=== PATIENT | female | born 1990 | race African-American/Black ===

== ENCOUNTER 2018-01-30 09:33 | Day surgery (SDC) | payer OTHER ==
[2018-01-30] MEDS: NS 1,000 ML IV (06:00)
[~2018-01-30 09:33] MED LIST: PROPOFOL 200 MG/20 ML VIAL As Ordered
[2018-01-30] MEDS ORDERED: PROPOFOL 200 MG/20 ML VIAL As Ordered (10:35)
== END 2018-01-30 11:34 | disposition home or self-care (01) ==
LOC: M OPP 09:33
DX: K92.1 Melena (principal); K59.00 Constipation, unspecified; D12.2 Benign neoplasm of ascending colon; D12.5 Benign neoplasm of sigmoid colon; K64.8 Other hemorrhoids; R10.13 Epigastric pain; K29.70 Gastritis, unspecified, without bleeding; K21.9 Gastro-esophageal reflux disease without esophagitis; R12 Heartburn; Z79.899 Other long term (current) drug therapy
CPT/HCPCS: 45380

== ENCOUNTER 2019-08-20 09:54 | Emergency (ER) | payer OTHER ==
[~2019-08-20] VITALS: Ht 154.9 cm; Wt 63.6 kg
[~2019-08-20 09:54] MED LIST changes: +DOXY100T; -PROPOFOL 200 MG/20 ML VIAL As Ordered
[2019-08-20 10:48] LABS: BASO % 0.3 % (0.0-1.0); EOS % 0.3 % (0.0-3.0); HEMATOCRIT 37.6 % (36.0-47.0); HEMOGLOBIN 11.6 g/dl (12.0-15.5); LYMPH # 2.2 10^3/uL (1.5-5.0); LYMPH % 30.3 % (24.0-44.0); MEAN CORPUSCULAR HEMOGLOBIN 23.7 pg (27.0-33.0); MEAN CORPUSCULAR HGB CONC 30.9 g/dl (32.0-36.5); MEAN CORPUSCULAR VOLUME 76.9 fl (80.0-96.0); MONO # 0.7 10^3/uL (0.0-0.8); MONO % 10.1 % (0.0-5.0); NEUTROPHILS # 4.3 10^3/uL (1.5-8.5); NEUTROPHILS % 58.6 % (36.0-66.0); PLATELET COUNT, AUTOMATED 403 10^3/uL (150-450); RED BLOOD COUNT 4.89 10^6/uL (4.00-5.40); WHITE BLOOD COUNT 7.4 10^3/uL (4.0-10.0)
[2019-08-20 11:00] LABS: HCG, SERUM QUALITATIVE NEGATIVE (NEGATIVE)
[2019-08-20 11:03] LABS: AMORPHOUS SEDIMENT SMALL (NEGATIVE); APPEARANCE, URINE CLOUDY (CLEAR); BACTERIA, URINE AUTO NEGATIVE (NEGATIVE); BILIRUBIN, URINE AUTO NEGATIVE (NEGATIVE); BLOOD, URINE BLOOD NEGATIVE (NEGATIVE); COLOR, URINE YELLOW (YELLOW); GLUCOSE, URINE (UA) AUTO NEGATIVE (NEGATIVE); KETONE, URINE AUTO NEGATIVE (NEGATIVE); LEUKOCYTE ESTERASE, URINE AUTO NEGATIVE (NEGATIVE); MUCUS, URINE SMALL (NEGATIVE); NITRITE, URINE AUTO NEGATIVE (NEGATIVE); PROTEIN, URINE AUTO NEGATIVE (NEGATIVE); RBC, URINE AUTO 4 /HPF (0-3); SPECIFIC GRAVITY URINE AUTO 1.017 (1.002-1.035); SQUAMOUS EPITHELIAL CELL UR AU 1 /HPF (0-6); UROBILINOGEN, URINE AUTO 0.2 mg/dL (0.0-2.0); WBC, URINE AUTO 0 /HPF (0-3)
[2019-08-20 11:03] LABS: ALBUMIN 2.8 GM/DL (3.2-5.2); ALT/SGPT 113 U/L (12-78); BILIRUBIN,DIRECT 0.1 MG/DL (0.0-0.2); BILIRUBIN,TOTAL 0.3 MG/DL (0.2-1.0); BLOOD UREA NITROGEN 9 MG/DL (7-18); CALCIUM LEVEL 8.8 MG/DL (8.5-10.1); CARBON DIOXIDE LEVEL 24 MEQ/L (21-32); CHLORIDE LEVEL 104 MEQ/L (98-107); CREATININE FOR GFR 0.61 MG/DL (0.55-1.30); GLOMERULAR FILTRATION RATE > 60.0 (>60); GLUCOSE, FASTING 97 MG/DL (70-100); LIPASE 124 U/L (73-393); POTASSIUM SERUM 4.4 MEQ/L (3.5-5.1); SODIUM LEVEL 136 MEQ/L (136-145); TOTAL PROTEIN 7.1 GM/DL (6.4-8.2)
[2019-08-20 12:00] LABS: HEPATITIS B SURFACE ANTIGEN NEGATIVE (NEGATIVE)
--- NOTE | 2019-08-20 12:24 | REP ---
RIGHT UPPER QUADRANT ULTRASOUND: Real-time sonographic evaluation of the right upper quadrant performed. Gallbladder demonstrates diffuse gallbladder wall thickening edema with thickness up to 7 mm. No gallstones are seen. There is trace scattered free fluid in the right upper quadrant. There is no intrahepatic or extrahepatic biliary dilatation, common bile duct measuring 4 mm. The liver is enlarged approximately 20 cm in length. There is a large mass which is heterogenous and somewhat hyperechoic in the right lobe of the liver 10.7 x 9.5 x 12.7 cm. Large mass is also seen towards the midline 10.4 x 8.3 x 9.6 cm. Visualized pancreas is grossly unremarkable but not well seen. Right kidney demonstrates no hydronephrosis. IMPRESSION: Gallbladder wall thickening and edema without evidence of gallstones. Trace free fluid in the right upper quadrant. No biliary dilatation. There are two large masses in the liver. These measure 10.4 cm and 12.7 cm maximally. Mild hepatomegaly. Electronically Signed by Juan R Aburto MD 08/24/2019 03:33 P
[2019-08-20 12:27] LABS: HEPATITIS B CORE ANTIBODY IGM NEGATIVE (NEGATIVE); HEPATITIS C VIRUS ABY INDEX < 0.0 INDEX (<0.8)
[2019-08-20 12:30] LABS: HEPATITIS A ANTIBODY IGM NEGATIVE (NEGATIVE)
[2019-08-20] MEDS ORDERED: ISOVUE-370 76% 100ML VIAL (Q9967) As Ordered ONE (12:54)
[2019-08-20] MEDS ORDERED: NS 1,000 ML IV ONE (13:00)
[2019-08-20] MEDS ORDERED: NEXP1IMP SC (13:14)
[2019-08-20] MEDS ORDERED: [UNRECOGNIZED DRUG - CODE] TOP (13:14)
--- NOTE | 2019-08-20 14:04 | REP ---
CT study abdomen pelvis with IV but without oral contrast: History: Mass in liver seen on ultrasound. Comparison is made with today's sonography. CT findings: Digital preliminary reed press feeder radiograph demonstrates rather massive hepatomegaly, vertical span of the liver is 20.1 the centimeters. The lung bases demonstrate an bilateral pulmonary nodules the largest of which is a 11 mm nodule in the left lower lobe. There is a nodule which may be a little larger incompletely seen at the top of the imaging field of view in the left lower lobe. There are two right lower lobe pulmonary nodules. The findings are suggestive of metastatic disease in the lungs. In the liver, there is a very large bilobed central hepatic mass lesion spanning the liver from the dome of the right lobe obliquely across the liver to the left lobe and quadrate lobe. This lesion measures 19.3 cm in greatest obliquely oriented dimension by approximately 10 cm in craniocaudal span by 9.4 cm in greatest anteroposterior dimension. There is heterogeneous arterial phase enhancement in the right lobe portion of the lesion appears to expand outward from the masses center. There is a very heterogeneous pattern of contrast enhancement on the early phase contrast images in the surrounding liver with multiple hypervascular areas and nodular changes which are of uncertain significance. The portal vein appears compressed above the hepatic scarlet. The hepatic veins are less than optimally seen. Delayed images demonstrate heterogeneous internal enhancement pattern. There is a relatively central focal calcification in the large mass. There is at least one enlarged portacaval lymph node below the hepatic scarlet suggesting adenopathy. There is also an enlarged and hypervascular lymph node to the left of midline in the celiac axis. This measures 12 mm in short axis dimension. No pancreatic lesion is seen. There is mild ascites. No peritoneal implantation is seen. No uterine mass or ovarian masses appreciated. Urinary bladder is unremarkable. Small and large bowel loops are unremarkable. The kidneys enhance symmetrically are morphologically intact. No bony abnormalities seen. Impression: Findings consistent with advanced metastatic malignancy affecting the liver, upper abdominal lymph nodes, and lung parenchyma. There is a very large intrahepatic mass lesion. The differential possibilities would be fibrolamellar hepatocellular carcinoma, possibly metastatic choriocarcinoma versus malignant mesenchymal lesion of the liver. Findings were discussed by telephone with Dr. Zach Khan at the time of the study. Electronically Signed by Tye Emery MD 08/20/2019 01:55 P
--- NOTE | 2019-08-20 14:18 | ER ---
DATE OF CONSULTATION: 08/20/2019 REQUESTING PROVIDER: Melanie Antonio, [place], [place] This is an emergency room consultation on Radha Magallanes, a 29-year-old, who I was asked to see while rounding for the hospitalist. The patient has had a three week history of increasing abdominal pain in the upper abdomen, particularly the right upper quadrant associated with unexplained weight loss, chills and progressive weakness and dyspnea. She recently returned from [facility] where she had had a four month tour. She did not take her prophylactic antibiotics for 3-4 weeks while she was over there. She felt well until about three weeks ago then she developed nausea, tried to drink alcohol and it made her feel sick. She has presented to the emergency room where she had an ultrasound done of her right upper quadrant that showed two large masses in the liver, 10.4 cm and 12.7 cm maximally with hepatomegaly. She has undergone CT scan of the abdomen and pelvis, formal report is pending, but I just spoke with Dr. Tye Emery the radiologist, and unfortunately these are not abscesses. 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 PAST MEDICAL HISTORY: Benign. No medical conditions for which she seeks medical care. SOCIAL HISTORY: She smoked a little bit when she was in [facility]. She drank some when she returned, but it made her sick so she stopped doing this. She does not drink much alcohol and has not been able to drink any in the last 3 weeks due to nausea when she tries to drink. REVIEW OF SYSTEMS: She has lost weight, she cannot quantitate how much. She has no fevers, but does have night sweats. She has had no particular darkening of the urine nor janet colored stools. No epistaxis, rectal bleeding or urinary bleeding. FAMILY HISTORY: Negative for diabetes, sickle cell or cancers. MEDICATIONS: None. ALLERGIES: None. PHYSICAL EXAMINATION: 115/68, pulse of 93, respiratory rate 16, 99% oxygen saturation on room air. General appearance: -Martiniquais female resting comfortably. Pupils equal and reactive to light. Tympanic membranes and oropharynx benign. Neck no masses. Lungs clear. Heart regular rhythm without murmur. Abdomen soft, very tender upper abdomen, liver is enlarged. No CVA tenderness. Extensive tattooing of the trunk. Scarring of the left hand from a recent attempted tattoo removal. Extremities no clubbing, cyanosis or edema. Moves arms and legs with equal strength. LABORATORIES: Sodium 136, potassium 4.4, BUN 9, creatinine 0.6, AST 139, ALT 113, alkaline phosphatase 160, bilirubin 0.3, white count 7.4, hemoglobin 11.6, platelets 403. Urinalysis is negative for bilirubin. Hepatitis panel is all negative, A, B and C. 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 PLAN: I discussed the CT findings with Ms. Antonio and recommended transfer to a tertiary care center for immediate oncologic evaluation, which is not available at this facility until next week. Ms. Antonio agrees for transfer and will arrange this. She will discuss the findings with the patient.
--- NOTE | 2019-08-20 14:19 | IPN ---
DATE: 08/20/2019 I went back to the emergency room and spent some time talking to Ms. Magallanes. We discussed the CT scan and the radiologist's concern that this might represent fibrolamellar hepatocellular carcinoma. He is concerned about metastases in lungs and regional lymph nodes. I indicated to her that while no imaging study can conclude the presence of cancer, the suspicion is high enough that she should be at a tertiary care center where biopsy diagnosis and initiation of treatment can occur in a more expedited and coordinated fashion. I gave her information from the [employer] [place] on fibrolamellar hepatocellular carcinoma, and she understands that this is to provide her with background information in case that diagnosis is confirmed, and that at this point, we do not have a definitive diagnosis, just sufficient concern to warrant transfer. She was appreciative of the information, understood the reason for transfer and appropriate support was offered.
[2019-08-20 17:08] VITALS: BP 114/58
== END 2019-08-20 17:13 | disposition short-term general hospital (02) ==
LOC: M ED 09:54
DX: R16.0 Hepatomegaly, not elsewhere classified (principal); R10.11 Right upper quadrant pain; R53.83 Other fatigue; R11.0 Nausea; R19.7 Diarrhea, unspecified; Z79.3 Long term (current) use of hormonal contraceptives; Z79.899 Other long term (current) drug therapy
CPT/HCPCS: 74177; 76705; 80048; 80076; 81001; 83690; 84703; 85025; 86705; 86709; 86803; 87340; 96360; 96361; 99284; Q9967